=== PATIENT | male | born 1945 | race Caucasian/White ===

== ENCOUNTER 2019-12-04 10:51 | Outpatient (CLI) | payer MEDICARE ==
--- NOTE | 2019-12-04 11:07 | RAD ---
XR Hand Rt 3 View STANDARD HISTORY: Right hand pain FINDINGS: No fracture or dislocation is identified. Degenerative changes are seen most prominent at the first c arpometacarpal joint.
== END 2019-12-04 10:52 | disposition home or self-care (01) ==
LOC: BICRAD 10:51
PROVIDERS: ATTEND Nurse Practitioner Family
DX: M79.641 Pain in right hand (principal)

== ENCOUNTER 2019-12-16 08:17 | Outpatient (CLI) | payer MEDICARE ==
--- NOTE | 2019-12-16 09:41 | MRI ---
MRI OF THE LUMBAR SPINE WITHOUT CONTRAST: Date: 12/16/2019 INDICATION: 74-year-old male with low back pain. COMPARISON: None. FINDINGS: There is susceptibility artifact involving the posterior pelvis consistent with a left SI joint arthr odesis screw. The remaining marrow signal intensity of the lumbar spine appears normal. Visualized pa ravertebral soft tissues and prevertebral soft tissues demonstrate a 2.6 cm cyst involving the lower pole of the left kidney. 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 No enlarged lymph nodes or free flui d is identified. At L5-S1, there is a broad based disc osteophyte complex with loss of disc space height and facet hyp ertrophy inducing moderate left neural foraminal narrowing. At L4-5, there is a broad based bulge with a superimposed left paracentral disc protrusion. There is mild narrowing of the left lateral recess. There is mild left neural foraminal narrowing. At L3-4, there is a broad based bulge with facet hypertrophy inducing mild neural foraminal narrowing . At L2-3, there is a broad based bulge with facet hypertrophy inducing mild bilateral neural foraminal narrowing. At L1-2, there is a mild broad based bulge, but no appreciable central canal or neural foraminal narr owing. At T12-L1, there is no appreciable central canal or neural foraminal narrowing. IMPRESSION: 1. Mild spondylosis of the lumbar spine with moderate left neural foraminal narrowing at L5-S1. Ther e is mild left neural foraminal narrowing at L4-5. There is mild left lateral recess narrowing at L4- 5 due to a broad based bulge with a superimposed left central disc protrusion and facet hypertrophy. 2. Postprocedural change of prior left-sided SI joint arthrodesis. 3. Left renal cyst. POS: [facility]
== END 2019-12-16 08:18 | disposition home or self-care (01) ==
LOC: SCSMRI 08:17
PROVIDERS: ATTEND Nurse Practitioner Family
DX: M54.5 Low back pain (principal); M47.816 Spondylosis without myelopathy or radiculopathy, lumbar region; M48.061 Spinal stenosis, lumbar region without neurogenic claudication; M48.07 Spinal stenosis, lumbosacral region; M51.26 Other intervertebral disc displacement, lumbar region; M89.38 Hypertrophy of bone, other site; M51.86 Other intervertebral disc disorders, lumbar region; N28.1 Cyst of kidney, acquired; Z98.1 Arthrodesis status
CPT/HCPCS: 72148

== ENCOUNTER 2020-09-29 11:45 | Outpatient (CLI) | payer MEDICARE ==
[2020-09-29 13:05] LABS: #Basophils 0.1 10x3/uL (0.0-0.2); #Eosinphils 0.3 10x3/uL (0.0-0.5); #Monocytes 0.7 10x3/uL (0.0-1.1); #Neutrophils 5.4 10x3/uL (1.5-8.4); %Basophils 1.3 % (0.0-2.0); %Eosinophils 3.3 % (0.0-6.0); %Lymphocytes 24.1 % (18.0-47.0); %Monocytes 8.1 % (0.0-10.0); %Neutrophils 62.7 % (40.0-75.0); Mean Corpuscular HGB CONC 33.6 g/dL (32.0-36.0); Mean Corpuscular Hemoglobin 31.5 pg (27.0-33.0); Mean Corpuscular Volume 93.9 fl (81.2-95.1); Mean Platelet Volume 10.9 fl (7.4-10.4); Platelet Count 324 10x3/uL (150-450); RBC Distribution Width 12.9 % (11.5-14.5); Red Blood Cell (RBC) Count 4.44 10x6/uL (4.32-5.72); White Blood Cell (WBC) Count 8.6 10x3/uL (3.5-10.5)
[2020-09-29 14:21] LABS: ALT (SGPT) 27 U/L (8-55); AST (SGOT) 23 U/L (5-34); Albumin 4.3 g/dL (3.4-4.8); Alkaline Phosphatase 97 U/L (40-110); Anion Gap 13 mmol/L (10-20); BUN (Urea Nitrogen) 11 mg/dL (8.4-25.7); Bilirubin, Total 0.5 mg/dL (0.2-1.2); Calc. Creatinine Clearance 0 mL/min (70-130); Calcium 9.9 mg/dL (7.8-10.44); Carbon Dioxide 23 mmol/L (23-31); Chloride 108 mmol/L (98-107); Globulin 2.8 g/dL (2.4-3.5); Glucose 102 mg/dL (83-110); Potassium 4.2 mmol/L (3.5-5.1); Protein, Total 7.1 g/dL (5.8-8.1); Sodium 140 mmol/L (136-145)
== END 2020-09-29 11:46 | disposition home or self-care (01) ==
LOC: LABBT 11:45
PROVIDERS: ATTEND Internal Medicine Cardiovascular Disease
DX: Z01.812 Encounter for preprocedural laboratory examination (principal); Z95.1 Presence of aortocoronary bypass graft
CPT/HCPCS: 80053; 85025

== ENCOUNTER 2020-10-19 12:44 | Observation (INO) | payer MEDICARE ==
[2020-10-19 13:11] LABS: #Basophils 0.1 thou/uL (0.0-0.2); #Eosinphils 0.1 thou/uL (0.0-0.7); #Lymphocytes 1.3 thou/uL (1.20-3.40); #Monocytes 0.9 thou/uL (0.11-0.59); #Neutrophils 10.2 thou/uL (1.40-6.50); %Basophils 0.4 % (0.0-1.0); %Eosinophils 1.1 % (0.0-10.0); %Lymphocytes 10.4 % (21.0-51.0); %Monocytes 6.8 % (0.0-10.0); %Neutrophils 81.3 % (42.0-75.0); Hemoglobin 14.1 g/dL (14.0-18.0); Mean Corpuscular HGB CONC 32.8 g/dL (32.0-36.0); Mean Corpuscular Hemoglobin 31.5 pg (27.0-31.0); Mean Corpuscular Volume 96.2 fL (78.0-98.0); Mean Platelet Volume 8.4 fL (7.4-10.4); Platelet Count 389 thou/uL (130-400); RBC Distribution Width 12.3 % (11.5-14.5); Red Blood Cell (RBC) Count 4.48 mill/uL (4.70-6.10); White Blood Cell (WBC) Count 12.6 thou/uL (4.8-10.8)
[2020-10-19 13:35] LABS: ALT (SGPT) 21 U/L (8-55); AST (SGOT) 22 U/L (5-34); Albumin 4.5 g/dL (3.4-4.8); Alkaline Phosphatase 107 U/L (40-110); Anion Gap 13 mmol/L (10-20); BUN (Urea Nitrogen) 16 mg/dL (8.4-25.7); Bilirubin, Total 0.6 mg/dL (0.2-1.2); Calc. Creatinine Clearance 0 mL/min (70-130); Calcium 10.3 mg/dL (7.8-10.44); Carbon Dioxide 24 mmol/L (23-31); Chloride 107 mmol/L (98-107); Globulin 2.8 g/dL (2.4-3.5); Glucose 108 mg/dL (83-110); Lipase 15 U/L (8-78); Potassium 4.4 mmol/L (3.5-5.1); Protein, Total 7.3 g/dL (5.8-8.1); Sodium 140 mmol/L (136-145)
[2020-10-19 13:57] LABS: CKMB 3.3 ng/mL (0-6.6)
[2020-10-19 15:27] LABS: INR-International Normal Ratio 1.1; Prothrombin Time 14.2 sec (12.0-14.7)
[2020-10-19 15:28] LABS: PTT 29.6 sec (22.9-36.1)
[2020-10-19 15:30] LABS: D-Dimer Test 0.38 *mcg/mL (0.27-0.43)
[2020-10-19 16:39] LABS: Troponin I 0.039 ng/mL (< 0.028)
[2020-10-19] MEDS ORDERED: traMADol HCl 50 MG TAB PO PRN (18:05)
[2020-10-19 20:07] LABS: Troponin I 0.037 ng/mL (< 0.028)
[2020-10-19] MEDS ORDERED: Clopidogrel Bisulfate 300 MG TAB ONE (20:57)
[2020-10-19] MEDS ORDERED: Famotidine 20 MG TAB ONE (20:57)
[2020-10-19] MEDS ORDERED: Clopidogrel Bisulfate 300 MG TAB PO SCH (21:00)
[2020-10-19] MEDS ORDERED: TICAGRELOR 90 MG TABLET PO SCH (21:00)
[2020-10-19] MEDS: Famotidine 20 MG TAB PO SCH (21:10)
[2020-10-19] MEDS ORDERED: Acetaminophen 325 MG TAB PO PRN (21:41)
[2020-10-19] MEDS: Tamsulosin HCl 0.4 MG CAP PO SCH (23:40)
[2020-10-19] MEDS: Fish Oil 1,000 MG CAP PO SCH (23:40)
[2020-10-20 04:52] LABS: #Basophils 0.1 thou/uL (0.0-0.2); #Eosinphils 0.3 thou/uL (0.0-0.7); #Lymphocytes 1.9 thou/uL (1.20-3.40); #Monocytes 1.1 thou/uL (0.11-0.59); #Neutrophils 7.4 thou/uL (1.40-6.50); %Basophils 0.9 % (0.0-1.0); %Eosinophils 2.7 % (0.0-10.0); %Lymphocytes 17.3 % (21.0-51.0); %Monocytes 10.1 % (0.0-10.0); Hemoglobin 13.3 g/dL (14.0-18.0); Mean Corpuscular HGB CONC 33.7 g/dL (32.0-36.0); Mean Corpuscular Volume 97.8 fL (78.0-98.0); Mean Platelet Volume 8.5 fL (7.4-10.4); Platelet Count 312 thou/uL (130-400); RBC Distribution Width 12.4 % (11.5-14.5); Red Blood Cell (RBC) Count 4.04 mill/uL (4.70-6.10); White Blood Cell (WBC) Count 10.8 thou/uL (4.8-10.8)
[2020-10-20 05:15] LABS: ALT (SGPT) 16 U/L (8-55); AST (SGOT) 17 U/L (5-34); Albumin 3.9 g/dL (3.4-4.8); Alkaline Phosphatase 92 U/L (40-110); Anion Gap 11 mmol/L (10-20); BUN (Urea Nitrogen) 18 mg/dL (8.4-25.7); Bilirubin, Total 0.8 mg/dL (0.2-1.2); Calc. Creatinine Clearance 64 mL/min (70-130); Calcium 9.4 mg/dL (7.8-10.44); Carbon Dioxide 22 mmol/L (23-31); Cardiac Risk 3.3 (Less than 4.5); Chloride 109 mmol/L (98-107); Cholesterol 118 mg/dl (< 200 Desired); Globulin 2.7 g/dL (2.4-3.5); Glucose 104 mg/dL (83-110); HDL Cholesterol 36 mg/dL (>60 Neg Risk); LDL Cholesterol, Calculated 59 mg/dL; Potassium 3.7 mmol/L (3.5-5.1); Protein, Total 6.6 g/dL (5.8-8.1); Sodium 138 mmol/L (136-145); Triglycerides 117 mg/dL (Less than 150)
[2020-10-20] MEDS ORDERED: Clopidogrel Bisulfate 300 MG TAB PO SCH (06:00)
[2020-10-20] MEDS ORDERED: Clopidogrel Bisulfate 75 MG TAB ONE (08:48)
[2020-10-20] MEDS ORDERED: Aspirin Chewable 81 MG TAB ONE (08:48)
[2020-10-20] MEDS ORDERED: Famotidine 20 MG TAB ONE (08:48)
[2020-10-20] MEDS: Aspirin 81 mg Enteric Coated Tablet PO SCH (09:10)
[2020-10-20] MEDS: Clopidogrel Bisulfate 75 MG TAB PO SCH (09:10)
[2020-10-20] MEDS: Rosuvastatin 10 MG TAB PO SCH (10:11)
[2020-10-20] MEDS: Ramipril 5 MG CAP PO SCH (10:11)
[2020-10-20] MEDS: Fish Oil 1,000 MG CAP PO SCH ×2 (10:12→20:35)
[2020-10-20 16:04] VITALS: BMI 26.7
[2020-10-20] MEDS: Tamsulosin HCl 0.4 MG CAP PO SCH (20:36)
[2020-10-20] MEDS: Famotidine 20 MG TAB PO SCH (20:37)
[2020-10-21 05:34] LABS: #Basophils 0.1 thou/uL (0.0-0.2); #Eosinphils 0.3 thou/uL (0.0-0.7); #Lymphocytes 1.9 thou/uL (1.20-3.40); #Monocytes 0.9 thou/uL (0.11-0.59); #Neutrophils 6.2 thou/uL (1.40-6.50); %Basophils 0.9 % (0.0-1.0); %Lymphocytes 20.2 % (21.0-51.0); %Monocytes 9.3 % (0.0-10.0); %Neutrophils 66.6 % (42.0-75.0); Hemoglobin 12.7 g/dL (14.0-18.0); Mean Corpuscular HGB CONC 32.8 g/dL (32.0-36.0); Mean Corpuscular Volume 97.5 fL (78.0-98.0); Mean Platelet Volume 8.5 fL (7.4-10.4); Platelet Count 333 thou/uL (130-400); RBC Distribution Width 12.2 % (11.5-14.5); Red Blood Cell (RBC) Count 3.98 mill/uL (4.70-6.10); White Blood Cell (WBC) Count 9.4 thou/uL (4.8-10.8)
[2020-10-21 06:02] LABS: ALT (SGPT) 16 U/L (8-55); AST (SGOT) 17 U/L (5-34); Albumin 3.9 g/dL (3.4-4.8); Alkaline Phosphatase 90 U/L (40-110); Anion Gap 10 mmol/L (10-20); BUN (Urea Nitrogen) 16 mg/dL (8.4-25.7); Bilirubin, Total 0.5 mg/dL (0.2-1.2); Calc. Creatinine Clearance 77 mL/min (70-130); Calcium 9.5 mg/dL (7.8-10.44); Carbon Dioxide 26 mmol/L (23-31); Chloride 108 mmol/L (98-107); Globulin 2.7 g/dL (2.4-3.5); Glucose 101 mg/dL (83-110); Potassium 4.1 mmol/L (3.5-5.1); Protein, Total 6.6 g/dL (5.8-8.1); Sodium 140 mmol/L (136-145)
[2020-10-21] MEDS: Aspirin 81 mg Enteric Coated Tablet PO SCH (07:38)
[2020-10-21] MEDS: Clopidogrel Bisulfate 75 MG TAB PO SCH (07:39)
[2020-10-21] MEDS: Fish Oil 1,000 MG CAP PO SCH (07:39)
[2020-10-21] MEDS: Ramipril 5 MG CAP PO SCH (07:40)
[2020-10-21] MEDS: Rosuvastatin 10 MG TAB PO SCH (07:41)
[2020-10-21 09:51] VITALS: BP 149/91; TEMP 98
[2020-10-22] MEDS ORDERED: Levothyroxine 150 MCG TAB PO SCH (06:00)
== END 2020-10-21 13:35 | disposition home or self-care (01) ==
LOC: ERS 12:44 → ERHOLD 15:44 → 2SW 10-20 15:36
PROVIDERS: ADMIT Internal Medicine; ATTEND Internal Medicine
DX: R07.9 Chest pain, unspecified (principal); R06.02 Shortness of breath; I25.118 Atherosclerotic heart disease of native coronary artery with other forms of angina pectoris; E03.9 Hypothyroidism, unspecified; I10 Essential (primary) hypertension; N40.0 Benign prostatic hyperplasia without lower urinary tract symptoms; M19.90 Unspecified osteoarthritis, unspecified site; F17.220 Nicotine dependence, chewing tobacco, uncomplicated; Z79.82 Long term (current) use of aspirin; Z79.02 Long term (current) use of antithrombotics/antiplatelets; Z79.899 Other long term (current) drug therapy; Z88.2 Allergy status to sulfonamides; Z95.1 Presence of aortocoronary bypass graft; Z95.5 Presence of coronary angioplasty implant and graft; Z66 Do not resuscitate
CPT/HCPCS: 71045; 80053 ×2; 80061; 82553; 83690; 84484 ×3; 85025 ×2; 85379; 85610; 85730; 87040; 93005; 93306; 94760; G0378 ×4; 36415; 84443

== ENCOUNTER 2022-04-20 08:20 | Outpatient (CLI) | payer MEDICARE ==
[2022-04-20 09:13] LABS: #Basophils 0.1 10x3/uL (0.0-0.2); #Eosinphils 0.3 10x3/uL (0.0-0.5); #Monocytes 0.7 10x3/uL (0.0-1.1); #Neutrophils 6.5 10x3/uL (1.5-8.4); %Basophils 1.1 % (0.0-2.0); %Eosinophils 3.2 % (0.0-6.0); %Lymphocytes 15.3 % (18.0-47.0); %Monocytes 7.6 % (0.0-10.0); Hemoglobin 12.6 g/dL (13.5-17.5); Mean Corpuscular Hemoglobin 32.7 pg (27.0-33.0); Mean Corpuscular Volume 96.4 fl (81.2-95.1); Mean Platelet Volume 11.1 fl (7.4-10.4); Platelet Count 279 10x3/uL (150-450); RBC Distribution Width 13.6 % (11.5-14.5); Red Blood Cell (RBC) Count 3.85 10x6/uL (4.32-5.72)
[2022-04-20 09:47] LABS: Anion Gap 12 mmol/L (10-20); BUN (Urea Nitrogen) 13 mg/dL (8.4-25.7); Calc. Creatinine Clearance 0 mL/min (70-130); Calcium 9.3 mg/dL (7.8-10.44); Carbon Dioxide 25 mmol/L (23-31); Chloride 108 mmol/L (98-107); Estimated GFR 77; Glucose 94 mg/dL (83-110); Potassium 4.3 mmol/L (3.5-5.1); Sodium 141 mmol/L (136-145)
== END 2022-04-20 08:21 | disposition home or self-care (01) ==
LOC: LABBT 08:20
PROVIDERS: ATTEND Orthopaedic Surgery Hand Surgery
DX: Z01.818 Encounter for other preprocedural examination (principal); M19.041 Primary osteoarthritis, right hand
CPT/HCPCS: 80048; 85025; 93005; 93010

== ENCOUNTER 2022-04-22 06:13 | Day surgery (SDC) | payer MEDICARE ==
[2022-04-21 13:25] VITALS: BMI 26.4
[2022-04-22] MEDS ORDERED: Bacitracin Zinc Ointment 30 gm TUBE ONE (07:52)
[2022-04-22] MEDS ORDERED: Bupivacaine PF 0.5% 30 ML VIAL ONE ×2 (07:52→13:31)
[2022-04-22] MEDS ORDERED: Neomycin-Polymyxin 1 ML AMP ONE (07:52)
[2022-04-22] MEDS ORDERED: fentaNYL PF 100 MCG/2 ML SYRINGE ONE (08:20)
[2022-04-22] MEDS ORDERED: CEFAZOLIN 2 GM VIAL ONE (08:27)
[2022-04-22] MEDS ORDERED: Sodium Chloride 0.9% 100 ML ONE (08:27)
[2022-04-22] MEDS ORDERED: Dexamethasone 20 MG/5 ML VIAL ONE (08:38)
[2022-04-22] MEDS ORDERED: PROPOFOL 200 MG/20 ML VIAL ONE (08:38)
[2022-04-22] MEDS ORDERED: Lidocaine 1% PF 5 ML VIAL ONE (08:38)
[2022-04-22] MEDS ORDERED: Glycopyrrolate 0.2 MG/ML 5 ML SYRINGE ONE (08:38)
[2022-04-22] MEDS ORDERED: Ondansetron PF 4 MG/2 ML Vial ONE (08:38)
[2022-04-22] MEDS ORDERED: ePHEDrine 50 MG/ML VIAL ONE (08:38)
[2022-04-22] MEDS ORDERED: EPINEPHrine 1 MG/10 ML Abboject SYRINGE ONE (08:38)
[2022-04-22] MEDS ORDERED: Phenylephrine 10 MG/ML VIAL ONE (12:56)
[2022-04-22] MEDS ORDERED: PHENYLEPHRINE-NS 100 MCG/ML 10 ML SYRINGE ONE (12:56)
[2022-04-22] MEDS ORDERED: HYDROcodone/Acetaminophen 5/325 mg Tablet ONE (15:42)
== END 2022-04-22 16:08 | disposition home or self-care (01) ==
LOC: SDC 06:13
PROVIDERS: ATTEND Orthopaedic Surgery Hand Surgery
PROC: 0RNW0ZZ Release Right Finger Phalangeal Joint, Open Approach (ICD-10-PCS; principal; 2022-04-22)
PROC: 0RGW04Z Fusion of Right Finger Phalangeal Joint with Internal Fixation Device, Open Approach (ICD-10-PCS; 2022-04-22)
PROC: 0RGW04Z Fusion of Right Finger Phalangeal Joint with Internal Fixation Device, Open Approach (ICD-10-PCS; 2022-04-22)
PROC: 0RRW0JZ Replacement of Right Finger Phalangeal Joint with Synthetic Substitute, Open Approach (ICD-10-PCS; 2022-04-22)
PROC: 0RRW0JZ Replacement of Right Finger Phalangeal Joint with Synthetic Substitute, Open Approach (ICD-10-PCS; 2022-04-22)
DX: M15.1 Heberden's nodes (with arthropathy) (principal); M15.2 Bouchard's nodes (with arthropathy); M24.541 Contracture, right hand; I25.10 Atherosclerotic heart disease of native coronary artery without angina pectoris; I10 Essential (primary) hypertension; Z79.02 Long term (current) use of antithrombotics/antiplatelets; Z79.890 Hormone replacement therapy; Z79.899 Other long term (current) drug therapy; Z88.1 Allergy status to other antibiotic agents; Z88.2 Allergy status to sulfonamides; Z95.1 Presence of aortocoronary bypass graft; Z95.5 Presence of coronary angioplasty implant and graft
CPT/HCPCS: 26525; 26536 ×2; 26860; 26861; 73120; C1776; C1894; J2370; J3490; S0020

== ENCOUNTER 2024-01-18 10:38 | Outpatient (CLI) | payer MEDICARE ==
[2024-01-18 11:58] LABS: #Basophils 0.11 10x3/uL (0.0-0.2); %Basophils 0.9 % (0.0-1.0); %Eosinophils 1.5 % (0.0-10.0); %Lymphocytes 11.3 % (21.0-51.0); %Monocytes 7.2 % (0.0-10.0); %Neutrophils 78.1 % (42.0-75.0); Hematocrit 34.3 % (42.0-52.0); Hemoglobin 10.9 g/dL (14.0-18.0); Mean Corpuscular HGB CONC 31.8 g/dL (32.0-36.0); Mean Corpuscular Hemoglobin 32.1 pg (27.0-31.0); Mean Corpuscular Volume 100.9 fL (78.0-98.0); Mean Platelet Volume 11.2 fL (7.4-10.4); Platelet Count 268 10x3/uL (130-400); RBC Distribution Width 13.2 % (11.5-14.5)
== END 2024-01-18 10:39 | disposition home or self-care (01) ==
LOC: LABBT 10:38
PROVIDERS: ATTEND Orthopaedic Surgery Hand Surgery
DX: Z01.818 Encounter for other preprocedural examination (principal); T84.84XA Pain due to internal orthopedic prosthetic devices, implants and grafts, initial encounter
CPT/HCPCS: 85025

== ENCOUNTER 2024-01-23 09:22 | Day surgery (SDC) | payer MEDICARE ==
[2024-01-18 11:04] VITALS: BMI 26.4
[2024-01-23] MEDS ORDERED: PROPOFOL 20 ML ONE ×3 (12:01→13:53)
[2024-01-23] MEDS ORDERED: fentaNYL PF 100 MCG/2 ML SYRINGE ONE (12:01)
[2024-01-23] MEDS ORDERED: Lidocaine 1% PF 5 ML VIAL ONE (12:02)
[2024-01-23] MEDS ORDERED: Bacitracin Zinc Ointment 30 gm TUBE ONE (12:30)
[2024-01-23] MEDS ORDERED: Bupivacaine PF 0.5% 30 ML VIAL ONE (12:30)
[2024-01-23] MEDS ORDERED: CEFAZOLIN 2 GM VIAL ONE (12:45)
[2024-01-23] MEDS ORDERED: Midazolam HCl 2 mg/2 ml Vial ONE (13:03)
== END 2024-01-23 15:00 | disposition home or self-care (01) ==
LOC: SDC 09:22
PROVIDERS: ATTEND Orthopaedic Surgery Hand Surgery
PROC: 0XP60YZ Removal of Other Device from Right Upper Extremity, Open Approach (ICD-10-PCS; principal; 2024-01-23)
DX: T84.84XA Pain due to internal orthopedic prosthetic devices, implants and grafts, initial encounter (principal); I10 Essential (primary) hypertension; I25.10 Atherosclerotic heart disease of native coronary artery without angina pectoris; Z95.1 Presence of aortocoronary bypass graft; Z95.5 Presence of coronary angioplasty implant and graft; Z98.41 Cataract extraction status, right eye; Z98.42 Cataract extraction status, left eye; Z98.890 Other specified postprocedural states; Z88.2 Allergy status to sulfonamides; Z88.1 Allergy status to other antibiotic agents; Z79.02 Long term (current) use of antithrombotics/antiplatelets; Y83.1 Surgical operation with implant of artificial internal device as the cause of abnormal reaction of the patient, or of later complication, without mention of misadventure at the time of the procedure
CPT/HCPCS: 20680 ×2; 73140; A6223; J0665; J2250; J2704

== ENCOUNTER 2024-04-02 16:23 | Emergency (ER) | payer MEDICARE ==
[2024-04-02 17:40] LABS: #Basophils 0.05 10x3/uL (0.0-0.2); %Basophils 0.4 % (0.0-1.0); %Eosinophils 0.5 % (0.0-10.0); %Lymphocytes 8.1 % (21.0-51.0); %Monocytes 5.2 % (0.0-10.0); %Neutrophils 84.9 % (42.0-75.0); Hematocrit 32.6 % (42.0-52.0); Hemoglobin 10.5 g/dL (14.0-18.0); Mean Corpuscular HGB CONC 32.2 g/dL (32.0-36.0); Mean Corpuscular Hemoglobin 30.8 pg (27.0-31.0); Mean Corpuscular Volume 95.6 fL (78.0-98.0); Platelet Count 261 10x3/uL (130-400); RBC Distribution Width 14.4 % (11.5-14.5); Red Blood Cell (RBC) Count 3.41 mill/uL (4.70-6.10)
[2024-04-02 17:55] LABS: ALT (SGPT) 21 U/L (8-55); AST (SGOT) 18 U/L (5-34); Albumin 3.7 g/dL (3.4-4.8); Alkaline Phosphatase 66 U/L (40-110); Anion Gap 12 mmol/L (10-20); BUN (Urea Nitrogen) 18 mg/dL (8.4-25.7); Bilirubin, Total 0.4 mg/dL (0.2-1.2); Calc. Creatinine Clearance 0 mL/min (70-130); Calcium 8.8 mg/dL (7.8-10.44); Carbon Dioxide 22 mmol/L (23-31); Chloride 110 mmol/L (98-107); Estimated GFR 86; Glucose 115 mg/dL (83-110); Magnesium 1.9 mg/dL (1.6-2.6); Potassium 4.4 mmol/L (3.5-5.1); Protein, Total 6.7 g/dL (5.8-8.1); Sodium 140 mmol/L (136-145)
[2024-04-02 18:01] LABS: Troponin I Less than 0.010 ng/mL (< 0.028)
[2024-04-02 20:49] LABS: Bacteria/HPF None Seen HPF (None Seen); Bilirubin Negative (Negative); Blood, Urine Negative (Negative); CAUTI Indications for Culture Dysuria,urgency,freq; Clarity Clear (Clear); Glucose, Urine (Dipstick) Normal (Negative); Ketone, Urine Negative (Negative); Leukocyte Negative Leu/uL (Negative); Nitrite Negative (Negative); Protein, Urine (Dipstick) 20 mg/dL (Neg-Trace); Specific Gravity, Urine 1.026 (1.002-1.036); Squamous Epithelial None Seen HPF (0-3); Urobilinogen Normal mg/dL (Less than 2); pH, Urine 5.5 (5.0-9.0)
[2024-04-02 20:51] LABS: Unclassified Crystals 2+ HPF (None Seen); Urine Culture Reflex No No
== END 2024-04-02 21:10 | disposition home or self-care (01) ==
LOC: ERS 16:23
DX: I95.1 Orthostatic hypotension (principal); R94.6 Abnormal results of thyroid function studies; I10 Essential (primary) hypertension; I25.10 Atherosclerotic heart disease of native coronary artery without angina pectoris; E03.9 Hypothyroidism, unspecified; F17.220 Nicotine dependence, chewing tobacco, uncomplicated; Z79.899 Other long term (current) drug therapy
CPT/HCPCS: 36415; 71045; 80053; 81001; 83735; 83880; 84443; 84484; 85025; 93005; 96360; 96361